=== PATIENT | male | born 1965 | race Caucasian/White ===

== ENCOUNTER 2021-09-25 11:48 | Day surgery (SDC) | payer MEDICARE ==
[2021-09-25] MEDS ORDERED: DIPRIVAN 200 MG/20 ML IV ONE (15:27)
[2021-09-25] MEDS ORDERED: Lactated Ringers 1,000 ML IV ONE (16:23)
--- NOTE | 2021-09-25 16:45 | XRAY ---
Indication: Right C3-C5 MBB. Intraoperative fluoroscopy provided for 21 seconds. 2 digital spot images submitted for interpretation demonstrates posterior needle tips projecting over the expected right C3-C5 nerve roots. Correlate with intraoperative findings/report.
--- NOTE | 2021-09-25 16:47 | XRAY ---
22 seconds fluoroscopy time in surgery for right C3-C5 MBB.
== END 2021-09-25 15:55 | disposition home or self-care (01) ==
LOC: SDC-PAIN 11:48
PROVIDERS: ATTEND Psychiatry & Neurology Pain Medicine
DX: M47.812 Spondylosis without myelopathy or radiculopathy, cervical region (principal); Z79.899 Other long term (current) drug therapy
CPT/HCPCS: 72040; 77002; J2704

== ENCOUNTER 2021-10-01 16:54 | Emergency (ER) | payer MEDICARE ==
[2021-10-01] MEDS ORDERED: BABY ASPIRIN 81 MG CHEW PO ONE (17:19)
[2021-10-01 17:48] LABS: Absolute Neutrophil Ct (ANC) 5.47 (1.4-6.9); Basophil (Absolute #) 0.02 (0-0.4); Eosinophil % 1.9 % (0.00-5.0); Eosinophil (Absolute #) 0.17 (0-0.5); Hematocrit 45.6 % (42-50); Hemoglobin 15.6 gm/dl (12.5-18.0); Lymphocyte (Absolute #) 2.29 (1.0-4.6); Lymphocytes % 25.9 % (24.0-44.0); Mean Cell Volume 100.4 fl (78-100); Mean Corpuscular Hemoglobin 34.4 pg (26-32); Mean Corpuscular Hgb Concent. 34.2 g/dl (32-36); Mean Platelet Volume 10.3 fl (7.5-11.0); Monocyte (Absolute #) 0.89 (0.0-1.3); Monocytes % 10.1 % (0.0-12.0); Neutrophil % 61.9 % (36.0-66.0); Platelet Count 255 K/mm3 (150-450); Red Blood Count 4.54 M/mm3 (4.1-5.6); Red Cell Distribution Width 12.8 % (11.5-14.0); White Blood Count 8.8 K/mm3 (4.0-10.5)
[2021-10-01] MEDS ORDERED: BABY ASPIRIN 81 MG CHEW ONE (17:52)
[2021-10-01 17:58] LABS: ALBUMIN 4.5 g/dL (3.5-5.0); ALKALINE PHOSPHATASE 67 U/L (38-126); ANION GAP 14.2 MEQ/L (5-15); BLOOD UREA NITROGEN 13 mg/dL (9-20); CHLORIDE 105 mmol/L (98-107); CK-Creatinine Phosphokinase 131 U/L (55-170); Calcium 9.2 mg/dL (8.4-10.2); Carbon Dioxide 21 mmol/L (22-30); Creatinine 1 0.75 mg/dL (0.66-1.25); EST GLOMERULAR FILTRATION RATE > 60.0 ML/MIN; Glucose 87 mg/dL (74-106); Potassium 4.3 mmol/L (3.5-5.1); SGOT/AST 39 U/L (17-59); SGPT/ALT 42 U/L (0-50); SODIUM 136 mmol/L (137-145); Total Protein 7.4 g/dL (6.3-8.2)
--- NOTE | 2021-10-01 18:37 | ERPHSYRPT ---
- History of Present Illness Time Seen by Provider: 10/01/21 16:58 Historian: patient Exam Limitations: no limitations Patient Subjective Stated Complaint: Pt c/o of daron chest pain with right shoulder pain that he states happened after an injection of Lidocaine from Dr. Liz in his right side of cervical neck, pt states that he gets very anxious and then his chest hurts and he also has a hx of having the same issues with lidocaine in the past Triage Nursing Assessment: Pt brought to the ER by his , hypertensive, rates pain as 6/10, admits that he is very is anxious and then his daron chest began hurting and right shoulder, no edema, pulses normal, pt laughing and talking, doesn't appear to be in any distress Physician History: 56 years old male with history of chronic shoulder pain, hypertension, hyperlipi demia presented to the ER with chief dull aching chest pain off and on for the last 4 days after he received right shoulder/neck injection from pain management. Patient reports dull aching pain more on the left with radiation to the right and having similar pains in the past after receiving pain medication shot. Pain got better with receiving Ativan. Denies any difficulty breathing or palpitations. No fever or chills reported. Timing/Duration: day(s) (4), intermittent, gradual onset, improved Activities at Onset: rest Quality: aching, dullness Chest Pain Radiation: no radiation Severity of Pain-Max: moderate Severity of Pain-Current: moderate Modifying Factors: Worsens With: exertion Associated Symptoms: denies symptoms Prior Chest Pain/Cardiac Workup: no prior cardiac workup Nitro Today/Relief: no nitro taken today Aspirin Treatment Today: no aspirin today Allergies/Adverse Reactions: paroxetine [From Paxil] Allergy (Verified 10/01/21 17:16) doxycycline Adverse Reaction (Verified 10/01/21 17:16) gabapentin Adverse Reaction (Verified 10/01/21 17:16) prednisone Adverse Reaction (Verified 10/01/21 17:16) Home Medications: ALPRAZolam [Alprazolam] 0.5 mg PO BID 10/01/21 [History] Famotidine 20 mg [Pepcid 20 MG] 20 mg PO DAILY 10/01/21 [History] Lovastatin 40 mg PO DAILY 10/01/21 [History] atenoloL [Atenolol] 25 mg PO DAILY 10/01/21 [History] Travel Risk - International Travel Have you traveled outside of the country in past 3 weeks: No - Coronavirus Screening Are you exhibiting any of the following symptoms?: No Close contact with a COVID-19 positive Pt in past 14-21 Days: No - Vaccine Status Have you recieved a Covid-19 vaccination: Yes San[employer]: Moderna - Vaccination Dates Date of 2cond Vaccination (if applicable): 10/2020 - Review of Systems Constitutional: No Symptoms Eyes: No Symptoms Ears, Nose, & Throat: No Symptoms Respiratory: No Symptoms Cardiac: Chest Pain Abdominal/Gastrointestinal: No Symptoms Genitourinary Symptoms: No Symptoms Musculoskeletal: Arthralgias Neurological: Irritability Psychological: Anxiety Endocrine: No Symptoms Hematologic/Lymphatic: No Symptoms Immunological/Allergic: No Symptoms - Past Medical History Pertinent Past Medical History: Yes Cardiac History: Hypertension Psycho-Social History: Anxiety Other Medical History: generalized pain - Past Surgical History Past Surgical History: Yes Genitourinary: Other Musculoskeletal: Orthopedic Surgery Other Surgical History: uretheral dilation. teeth carotid artery. lamonectomy. shoulder - Social History Smoking Status: Current some day smoker Exposure to second hand smoke: Yes Drug Use: none Patient Lives Alone: No - Nursing Vital Signs Nursing Vital Signs: Initial Vital Signs Temperature 97.6 F 10/01/21 16:59 Pulse Rate 78 10/01/21 16:59 Blood Pressure 161/90 10/01/21 16:59 O2 Sat by Pulse Oximetry 98 10/01/21 16:59 Pain Scale Pain Intensity 5 - Physical Exam General Appearance: no apparent distress, alert, anxiety Eye Exam: PERRL/EOMI, eyes nml inspection Ears, Nose, Throat Exam: normal ENT inspection, TMs normal, pharynx normal, moist mucous membranes Neck Exam: normal inspection, non-tender, supple, full range of motion Respiratory Exam: normal breath sounds, lungs clear Cardiovascular Exam: regular rate/rhythm, normal heart sounds Gastrointestinal/Abdomen Exam: soft, normal bowel sounds, No tenderness Back Exam: normal inspection Extremity Exam: normal inspection, normal range of motion Neurologic Exam: alert, oriented x 3, cooperative Skin Exam: normal color SpO2 Interpretation: normal SpO2: 98 O2 Delivery: Room Air Ordered Tests: Active Orders 24 hr Category Date Time Status [employer] H[employer] Developer STAT Care 10/01/21 17:19 Completed EKG-ER Only STAT Care 10/01/21 17:19 Completed IV Insertion STAT Care 10/01/21 17:19 Completed CHEST 1 VIEW (PORTABLE) Stat Exams 10/01/21 17:19 Taken CBC W DIFF Stat Lab 10/01/21 17:15 Completed CK-Creatinine Phosphokinase Stat Lab 10/01/21 17:15 Completed CMP Stat Lab 10/01/21 17:15 Completed D-DIMER QUANTITATIVE Stat Lab 10/01/21 18:57 Completed MAG [MAGNESIUM] Stat Lab 10/01/21 17:51 Completed NT PRO BNP Stat Lab 10/01/21 17:15 Completed TROPONIN Q3H Lab 10/01/21 17:15 Completed TROPONIN Q3H Lab 10/01/21 19:11 Completed Medication Summary Discontinued Medications Generic Name Dose Route Start Last Admin Trade Name Freq PRN Reason Stop Dose Admin Aspirin 324 mg 10/01/21 17:19 10/01/21 17:53 Aspirin 81 Mg Tab.Chew PO 10/01/21 17:20 324 mg STAT ONE Administration Aspirin Confirm 10/01/21 17:52 Aspirin 81 Mg Tab.Chew Administered 10/01/21 17:53 Dose 324 mg .ROUTE .[employer]-MED ONE Lab/Rad Data: Laboratory Result Diagrams 10/01/21 17:15 10/01/21 17:15 Laboratory Results 10/01/21 10/01/21 10/01/21 Range/Units 19:11 18:57 17:51 WBC (4.0-10.5) K/mm3 RBC (4.1-5.6) M/mm3 Hgb (12.5-18.0) gm/dl Hct (42-50) % MCV (78-100) fl MCH (26-32) pg MCHC (32-36) g/dl RDW (11.5-14.0) % Plt Count (150-450) K/mm3 MPV (7.5-11.0) fl Gran % (36.0-66.0) % Eos # (Auto) (0-0.5) Absolute Lymphs (auto) (1.0-4.6) Absolute Monos (auto) (0.0-1.3) Lymphocytes % (24.0-44.0) % Monocytes % (0.0-12.0) % Eosinophils % (0.00-5.0) % Basophils % (0.0-0.4) % Absolute Granulocytes (1.4-6.9) Basophils # (0-0.4) D-Dimer 252 (215-500) ng/mL Sodium (137-145) mmol/L Potassium (3.5-5.1) mmol/L Chloride (98-107) mmol/L Carbon Dioxide (22-30) mmol/L Anion Gap (5-15) MEQ/L BUN (9-20) mg/dL Creatinine (0.66-1.25) mg/dL Estimated GFR ML/MIN Glucose (74-106) mg/dL Calcium (8.4-10.2) mg/dL Magnesium 2.0 (1.6-2.3) mg/dL Total Bilirubin (0.2-1.3) mg/dL AST (17-59) U/L ALT (0-50) U/L Alkaline Phosphatase (38-126) U/L Creatine Kinase (55-170) U/L Troponin I 0.019 (0.000-0.034) ng/mL NT-Pro-B Natriuret Pep (0-900) pg/mL Serum Total Protein (6.3-8.2) g/dL Albumin (3.5-5.0) g/dL 10/01/21 10/01/21 10/01/21 Range/Units 17:15 17:15 17:15 WBC 8.8 (4.0-10.5) K/mm3 RBC 4.54 (4.1-5.6) M/mm3 Hgb 15.6 (12.5-18.0) gm/dl Hct 45.6 (42-50) % MCV 100.4 H (78-100) fl MCH 34.4 H (26-32) pg MCHC 34.2 (32-36) g/dl RDW 12.8 (11.5-14.0) % Plt Count 255 (150-450) K/mm3 MPV 10.3 (7.5-11.0) fl Gran % 61.9 (36.0-66.0) % Eos # (Auto) 0.17 (0-0.5) Absolute Lymphs (auto) 2.29 (1.0-4.6) Absolute Monos (auto) 0.89 (0.0-1.3) Lymphocytes % 25.9 (24.0-44.0) % Monocytes % 10.1 (0.0-12.0) % Eosinophils % 1.9 (0.00-5.0) % Basophils % 0.2 (0.0-0.4) % Absolute Granulocytes 5.47 (1.4-6.9) Basophils # 0.02 (0-0.4) D-Dimer (215-500) ng/mL Sodium 136 L (137-145) mmol/L Potassium 4.3 (3.5-5.1) mmol/L Chloride 105 (98-107) mmol/L Carbon Dioxide 21 L (22-30) mmol/L Anion Gap 14.2 (5-15) MEQ/L BUN 13 (9-20) mg/dL Creatinine 0.75 (0.66-1.25) mg/dL Estimated GFR > 60.0 ML/MIN Glucose 87 (74-106) mg/dL Calcium 9.2 (8.4-10.2) mg/dL Magnesium (1.6-2.3) mg/dL Total Bilirubin 0.60 (0.2-1.3) mg/dL AST 39 (17-59) U/L ALT 42 (0-50) U/L Alkaline Phosphatase 67 (38-126) U/L Creatine Kinase 131 (55-170) U/L Troponin I 0.015 (0.000-0.034) ng/mL NT-Pro-B Natriuret Pep 65.0 (0-900) pg/mL Serum Total Protein 7.4 (6.3-8.2) g/dL Albumin 4.5 (3.5-5.0) g/dL - Progress Progress: improved Air Movement: good Progress Note: 10/01/21 20:04 56 years old is evaluated for chest pain after receiving injection from pain management. Patient is given aspirin, on reevaluation feeling better and is chest pain-free. Has some element of anxiety to. Patient had similar chest pains in the past and get better with Ativan. Negative troponins x2, negative D-dimers. Chest x-ray no acute findings reviewed by me, official report is pending. I have offered him observation admission but patient wants to go home and would follow-up outpatient with cardiology. Patient does report that he headache nuclear stress test done few months ago and was -2 and has similar chest pain multiple times in the past. Discussed with patient both signs symptoms of worsening needing return to ER which he seems understanding. Stable for discharge. Blood Culture(s) Obtained: No Antibiotics given: No Counseled pt/family regarding: lab results, diagnosis, need for follow-up, rad results - Departure Departure Disposition: Home Clinical Impression: Atypical chest pain, Anxiety Condition: Stable Critical Care Time: No Referrals: LEONARDA CONTRERAS PA [Primary Care Provider] - Follow up/PCP as directed (1-2 days for reevaluation) NATALIA ANGELES [CONSULTING PHYSICIAN] - Follow up/PCP as directed (Call tomorrow for appointment for reevaluation.) Instructions: Angina (DC) Additional Instructions: Follow-up with primary care and cardiology for reevaluation. Return to ER for worsening chest pain or if having palpitations/shortness of breath etc.
[2021-10-01 20:05] VITALS: BP 129/78; PULSE 68
[2021-10-01 20:09] VITALS: O2SAT 98
--- NOTE | 2021-10-02 08:41 | XRAY ---
Indication: Chest pain. Comparison: None Portable apical lordotic chest demonstrates minimal left base fibrosis/scarring. Remaining heart and lungs normal. Bony thorax intact with previous right shoulder surgery.
== END 2021-10-01 20:26 | disposition home or self-care (01) ==
LOC: ED 16:54
DX: R07.89 Other chest pain (principal); F41.9 Anxiety disorder, unspecified; I10 Essential (primary) hypertension; E78.5 Hyperlipidemia, unspecified; Z72.0 Tobacco use; Z79.899 Other long term (current) drug therapy
CPT/HCPCS: 36000; 36415; 71045; 80053; 82550; 83735; 83880; 84484; 85025; 85379; 93005; 93041; 99284; A9270-GY

== ENCOUNTER 2022-11-11 15:00 | Emergency (ER) | payer MEDICARE ==
[2022-11-11] MEDS ORDERED: BABY ASPIRIN 81 MG CHEW PO ONE (15:20)
--- NOTE | 2022-11-11 15:20 | ERPHSYRPT ---
- History of Present Illness Time Seen by Provider: 11/11/22 15:15 Historian: patient Exam Limitations: no limitations Patient Subjective Stated Complaint: C/O chest pain that started approx 30 minutes prior to arrival while driving from [place] to [place] for a bello rcut. Triage Nursing Assessment: Patient ambulated back to ER. He is alert and oriented; anxious. No SOB. Skin tone normal. No edema. No cough. [place] WNL. Physician History: This is a 57-year-old white male patient who has known peripheral vascular d isease and had a right carotid endarterectomy in the past who relatively recently was seen at an outside emergent department and diagnosed with clinical TIA. Per his report there was no evidence of an acute stroke. Approxi-2 years ago patient underwent a cardiac stress test and it was negative per patient report. Patient currently sees Dr. Pinto a nail artist who follows his blood pressure. He has had nail artist in the past who he was sent to because of the issue with his carotid artery disease and high blood pressure. He has not been diagnosed with coronary artery disease in the past. He is never had a echocardiogram of the heart or cardiac catheterization. However, he does state that he was told once by his doctor that he had angina. Patient does have significant anxiety as well. Patient is on metoprolol, atorvastatin, and alprazolam. Today, prior to arrival, he was on his way from his home to the [facility] to get a haircut. He began having substernal, central, nonradiating chest pressure and he became concerned so he diverted to our emergency department. He has no shortness of breath. Patient has been on Plavix as well. However, the family states that he will be changing to Brilinta. Timing/Duration: today Activities at Onset: none Quality: pressure Location: substernal, central Chest Pain Radiation: no radiation Severity of Pain-Max: mild Severity of Pain-Current: none Prior Chest Pain/Cardiac Workup: stress test (3 years ago and per his report it was negative) Nitro Today/Relief: no nitro taken today Aspirin Treatment Today: no aspirin today Allergies/Adverse Reactions: dexamethasone Allergy (Verified 11/11/22 15:01) paroxetine [From Paxil] Allergy (Verified 11/11/22 15:01) gabapentin Adverse Reaction (Verified 11/11/22 15:01) prednisone Adverse Reaction (Verified 11/11/22 15:01) Home Medications: ALPRAZolam [Alprazolam] 0.5 mg PO BID 10/01/21 [History] Famotidine 20 mg [Pepcid 20 MG] 20 mg PO DAILY 10/01/21 [History] Lovastatin 40 mg PO DAILY 10/01/21 [History] atenoloL [Atenolol] 25 mg PO DAILY 10/01/21 [History] Hx Tetanus, Diphtheria Vaccination/Date Given: Yes Hx Influenza Vaccination/Date Given: Yes Hx Pneumococcal Vaccination/Date Given: Yes Immunizations Up to Date: Yes Travel Risk - International Travel Have you traveled outside of the country in past 3 weeks: No - Coronavirus Screening Are you exhibiting any of the following symptoms?: No Close contact with a COVID-19 positive Pt in past 14-21 Days: No - Vaccine Status Have you recieved a Covid-19 vaccination: Yes 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[employer] - Vaccination Dates Date of 2cond Vaccination (if applicable): 10/2020 - Review of Systems Constitutional: No Symptoms Eyes: No Symptoms Ears, Nose, & Throat: No Symptoms, Throat Swelling Cardiac: Chest Pain Abdominal/Gastrointestinal: No Symptoms Genitourinary Symptoms: No Symptoms Musculoskeletal: No Symptoms Skin: No Symptoms Neurological: No Symptoms Psychological: No Symptoms Endocrine: No Symptoms Hematologic/Lymphatic: No Symptoms Immunological/Allergic: No Symptoms All Other Systems: Reviewed and Negative - Past Medical History Pertinent Past Medical History: Yes Neurological History: TIA Cardiac History: Hypertension Psycho-Social History: Anxiety Other Medical History: generalized pain, carotid blockage - Past Surgical History Past Surgical History: Yes Cardiac: No Pertinent History Gastrointestinal: No Pertinent History Genitourinary: Other Musculoskeletal: Orthopedic Surgery Other Surgical History: uretheral dilation, right carotid artery in 2019, lamonectomy, shoulder - Social History Smoking Status: Current some day smoker How long have you smoked: 45 YEARS Exposure to second hand smoke: Yes Drug Use: none Patient Lives Alone: No - Nursing Vital Signs Nursing Vital Signs: Initial Vital Signs Temperature 97.9 F 11/11/22 15:02 Pulse Rate 81 11/11/22 15:02 Respiratory Rate 24 11/11/22 15:02 Blood Pressure 140/78 11/11/22 15:02 O2 Sat by Pulse Oximetry 98 11/11/22 15:02 Pain Scale Pain Intensity 4 - Physical Exam General Appearance: no apparent distress, alert Eye Exam: PERRL/EOMI, eyes nml inspection Ears, Nose, Throat Exam: normal ENT inspection, moist mucous membranes Neck Exam: normal inspection, non-tender, supple, full range of motion Respiratory Exam: normal breath sounds, chest tenderness, lungs clear, airway intact, No respiratory distress Cardiovascular Exam: regular rate/rhythm, normal heart sounds, normal peripheral pulses Gastrointestinal/Abdomen Exam: soft, normal bowel sounds, No tenderness Rectal Exam: not done Back Exam: normal inspection, normal range of motion, No CVA tenderness Extremity Exam: normal inspection, normal range of motion, pelvis stable Neurologic Exam: alert, oriented x 3, cooperative, cigarette inspector II-XII nml as tested, normal mood/affect, nml cerebellar function, nml station & gait, sensation nml Skin Exam: normal color, warm, dry Lymphatic Exam: No adenopathy SpO2 Interpretation: normal SpO2: 98 O2 Delivery: Room Air - Course Nursing assessment & vital signs reviewed: Yes EKG Interpreted by Me: RATE (61), Sinus Rhythm, NORMAL AXIS, NORMAL INTERVALS, NORMAL QRS, NORMAL ST-T, Other (No acute ischemia on today's twelve-lead EKG.) Ordered Tests: Active Orders 24 hr Category Date Time Status EKG-ER Only STAT Care 11/11/22 15:20 Active IV Insertion STAT Care 11/11/22 15:20 Active Pulse Oximetry (ED) STAT Care 11/11/22 15:20 Active CHEST 1 VIEW (PORTABLE) Stat Exams 11/11/22 15:20 Completed CBC W DIFF Stat Lab 11/11/22 15:25 Completed CMP Stat Lab 11/11/22 15:25 Completed D-DIMER QUANTITATIVE Stat Lab 11/11/22 15:25 Completed NT PRO BNPII Stat Lab 11/11/22 15:25 Completed TROPONIN Q4H Lab 11/11/22 15:25 Completed TROPONIN Q4H Lab 11/11/22 18:45 Completed TROPONIN Q4H Lab 11/11/22 23:30 Ordered Medication Summary Discontinued Medications Generic Name Dose Route Start Last Admin Trade Name Freq PRN Reason Stop Dose Admin Aspirin 324 mg 11/11/22 15:20 11/11/22 15:25 Aspirin 81 Mg Tab.Chew PO 11/11/22 15:21 324 mg STAT ONE Administration Aspirin Confirm 11/11/22 15:28 Aspirin 81 Mg Tab.Chew Administered 11/11/22 15:29 Dose 324 mg .ROUTE .STK-MED ONE Lab/Rad Data: Laboratory Result Diagrams 11/11/22 15:25 11/11/22 15:25 Laboratory Results 11/11/22 11/11/22 11/11/22 Range/Units 18:45 15:25 15:25 WBC (4.0-10.5) x10^3/uL RBC (4.1-5.6) x10^6/uL Hgb (12.5-18.0) g/dL Hct (42-50) % MCV (78-100) fL MCH (26-32) pg MCHC (32-36) g/dL RDW (11.5-14.0) % Plt Count (150-450) x10^3/uL MPV (7.5-11.0) fL Gran % (36.0-66.0) % Immature Gran % (Auto) (0.00-0.4) % Nucleat RBC Rel Count (0.00-0.1) % Eos # (Auto) (0-0.5) x10^3/uL Immature Gran # (Auto) (0.00-0.03) x10^3u/L Absolute Lymphs (auto) (1.0-4.6) x10^3/uL Absolute Monos (auto) (0.0-1.3) x10^3/uL Absolute Nucleated RBC (0.00-0.01) x10^3u/L Lymphocytes % (24.0-44.0) % Monocytes % (0.0-12.0) % Eosinophils % (0.00-5.0) % Basophils % (0.0-0.4) % Absolute Granulocytes (1.4-6.9) x10^3/uL Basophils # (0-0.4) x10^3/uL D-Dimer < 0.19 (0.0-0.50) mg/L Sodium (137-145) mmol/L Potassium (3.5-5.1) mmol/L Chloride (98-107) mmol/L Carbon Dioxide (22-30) mmol/L Anion Gap (5-15) MEQ/L BUN (9-20) mg/dL Creatinine (0.66-1.25) mg/dL Estimated GFR ML/MIN Glucose (74-106) mg/dL Calcium (8.4-10.2) mg/dL Total Bilirubin (0.2-1.3) mg/dL AST (17-59) U/L ALT (0-50) U/L Alkaline Phosphatase (38-126) U/L Troponin I 0.014 0.013 (0.000-0.034) ng/mL NT-Pro-B Natriuret Pep (<300) pg/mL Serum Total Protein (6.3-8.2) g/dL Albumin (3.5-5.0) g/dL 11/11/22 11/11/22 Range/Units 15:25 15:25 WBC 5.4 (4.0-10.5) x10^3/uL RBC 4.24 (4.1-5.6) x10^6/uL Hgb 14.3 (12.5-18.0) g/dL Hct 42.4 (42-50) % MCV 100.0 (78-100) fL MCH 33.7 H (26-32) pg MCHC 33.7 (32-36) g/dL RDW 12.5 (11.5-14.0) % Plt Count 209 (150-450) x10^3/uL MPV 10.6 (7.5-11.0) fL Gran % 53.5 (36.0-66.0) % Immature Gran % (Auto) 0.2 (0.00-0.4) % Nucleat RBC Rel Count 0.0 (0.00-0.1) % Eos # (Auto) 0.17 (0-0.5) x10^3/uL Immature Gran # (Auto) 0.01 (0.00-0.03) x10^3u/L Absolute Lymphs (auto) 1.83 (1.0-4.6) x10^3/uL Absolute Monos (auto) 0.48 (0.0-1.3) x10^3/uL Absolute Nucleated RBC 0.00 (0.00-0.01) x10^3u/L Lymphocytes % 34.0 (24.0-44.0) % Monocytes % 8.9 (0.0-12.0) % Eosinophils % 3.2 (0.00-5.0) % Basophils % 0.2 (0.0-0.4) % Absolute Granulocytes 2.89 (1.4-6.9) x10^3/uL Basophils # 0.01 (0-0.4) x10^3/uL D-Dimer (0.0-0.50) mg/L Sodium 137 (137-145) mmol/L Potassium 4.1 (3.5-5.1) mmol/L Chloride 103 (98-107) mmol/L Carbon Dioxide 24 (22-30) mmol/L Anion Gap 14.1 (5-15) MEQ/L BUN 9 (9-20) mg/dL Creatinine 0.86 (0.66-1.25) mg/dL Estimated GFR > 60.0 ML/MIN Glucose 100 (74-106) mg/dL Calcium 9.0 (8.4-10.2) mg/dL Total Bilirubin 0.50 (0.2-1.3) mg/dL AST 36 (17-59) U/L ALT 38 (0-50) U/L Alkaline Phosphatase 58 (38-126) U/L Troponin I (0.000-0.034) ng/mL NT-Pro-B Natriuret Pep 127 (<300) pg/mL Serum Total Protein 7.4 (6.3-8.2) g/dL Albumin 4.3 (3.5-5.0) g/dL - Progress Progress: improved, re-examined, unchanged Air Movement: good Progress Note: 11/11/22 16:40 This patient's chest x-ray was interpreted by the radiologist and reviewed by me. The patient has no acute cardiopulmonary process. This patient's medical issue is 1 of moderate complexity. The level of complexity and the work-up performed is based on the review of the patient's past medical history, review of the patient's medication list, review of the patient's drug allergy list, history of present illness and findings on physical examination. The work-up in this patient includes a chest x-ray, twelve-lead EKG, CMP, CBC, D-dimer, and troponin. I reviewed the results of the studies. There is no evidence of any acute, emergent medical issue. We will keep the patient here and repeat a twelve-lead EKG in 3 hours from the last twelve-lead EKG as well as a 3-hour troponin level. If these are normal patient will be discharged to home. He was instructed to contact his nail artist which he did and he has an appointment to see his nail artist on 11/12/2022 which is tomorrow. He is to continue his medication as prescribed. 11/11/22 19:13 Patient's 3-hour troponin is approximately the same as the previous 1 the value went from 0.013-0.014. Both of these are well within the normal range. The repeat, 3-hour twelve-lead EKG does show a sinus bradycardia with a heart rate of 47 compared to his previous twelve-lead EKG of heart rate of 61. Patient did just take his oral metoprolol here in the hospital. Patient was told to hold his blood pressure medication tomorrow morning before he sees his nail artist. He currently states his chest pain is gone. Blood Culture(s) Obtained: No Antibiotics given: No Counseled pt/family regarding: lab results, diagnosis, need for follow-up, rad results Medical Desision Making - Independent Historian Additional History obtained from: Spouse - Diagnostic Testing Radiological Interpretation: Reviewed by me, Teleradiologist Report - Risk of complications Low Risk: Low risk of morbidity from additional dx testing or treatment - Departure Departure Disposition: Home Clinical Impression: Chest pain Condition: Stable Critical Care Time: No Referrals: LEONARDA CONTRERAS PA [Primary Care Provider] - Follow up/PCP as directed Additional Instructions: Take your medications as prescribed. Follow-up with your nail artist tomorrow at your scheduled appointment time. Return to the emergency department if symptoms recur.
[2022-11-11] MEDS ORDERED: BABY ASPIRIN 81 MG CHEW ONE (15:28)
[2022-11-11 15:47] LABS: Absolute Neutrophil Ct (ANC) 2.89 x10^3/uL (1.4-6.9); BASOPHIL % 0.2 % (0.0-0.4); Basophil (Absolute #) 0.01 x10^3/uL (0-0.4); Eosinophil % 3.2 % (0.00-5.0); Eosinophil (Absolute #) 0.17 x10^3/uL (0-0.5); Hematocrit 42.4 % (42-50); Hemoglobin 14.3 g/dL (12.5-18.0); IMMATURE GRAN # 0.01 x10^3u/L (0.00-0.03); IMMATURE GRAN % 0.2 % (0.00-0.4); Lymphocyte (Absolute #) 1.83 x10^3/uL (1.0-4.6); Mean Corpuscular Hemoglobin 33.7 pg (26-32); Mean Corpuscular Hgb Concent. 33.7 g/dL (32-36); Mean Platelet Volume 10.6 fL (7.5-11.0); Monocyte (Absolute #) 0.48 x10^3/uL (0.0-1.3); Monocytes % 8.9 % (0.0-12.0); Neutrophil % 53.5 % (36.0-66.0); Platelet Count 209 x10^3/uL (150-450); Red Blood Count 4.24 x10^6/uL (4.1-5.6); Red Cell Distribution Width 12.5 % (11.5-14.0); White Blood Count 5.4 x10^3/uL (4.0-10.5)
--- NOTE | 2022-11-11 15:57 | XRAY ---
Indication: Chest pain. Comparison: October 01, 2021 Portable apical lordotic chest remains hyperinflated and clear. Heart not enlarged. Bony thorax intact. No new/acute findings.
[2022-11-11 15:59] LABS: ALBUMIN 4.3 g/dL (3.5-5.0); ALKALINE PHOSPHATASE 58 U/L (38-126); ANION GAP 14.1 MEQ/L (5-15); BLOOD UREA NITROGEN 9 mg/dL (9-20); CHLORIDE 103 mmol/L (98-107); Carbon Dioxide 24 mmol/L (22-30); Creatinine 1 0.86 mg/dL (0.66-1.25); EST GLOMERULAR FILTRATION RATE > 60.0 ML/MIN; Glucose 100 mg/dL (74-106); NT PRO BNPII 127 pg/mL (<300); Potassium 4.1 mmol/L (3.5-5.1); SGOT/AST 36 U/L (17-59); SGPT/ALT 38 U/L (0-50); SODIUM 137 mmol/L (137-145); Total Protein 7.4 g/dL (6.3-8.2)
[2022-11-11 19:17] VITALS: O2SAT 98
[2022-11-11 19:26] VITALS: BP 129/73; PULSE 58
== END 2022-11-11 19:35 | disposition home or self-care (01) ==
LOC: ED 15:00
DX: R07.9 Chest pain, unspecified (principal); I10 Essential (primary) hypertension; Z79.02 Long term (current) use of antithrombotics/antiplatelets; Z79.899 Other long term (current) drug therapy; Z72.0 Tobacco use
CPT/HCPCS: 36000; 36415; 71045; 80053; 83880; 84484; 85025; 85379; 93005; 94760; 99284; A9270-GY

== ENCOUNTER 2023-02-25 16:26 | Emergency (ER) | payer MEDICARE ==
--- NOTE | 2023-02-25 16:32 | ERPHSYRPT ---
- History of Present Illness Time Seen by Provider: 02/25/23 16:32 Source: patient, family Exam Limitations: no limitations Physician History: This is a 58-year-old white male who arrives to the emergency department after having a full work-up at [facility] emergency department earlier today. Patient has a history of hyperlipidemia, COPD, hypertension, GERD, depression, bipolar disorder, back pain, dizziness, chest pain, anxiety and TIAs. He was having complaints of left flank pain and left scrotal/testicular pain. I reviewed the records from the work-up that was done today on 02/25/2023. The patient was discharged from the emergency department and instructed to warehouse order picker Cipro antibiotic. They did not warehouse order picker this medication. He was having a lot of left flank and left scrotal pain so they came here instead. Patient has [place] at home. He states he cannot take NSAIDs because he is allergic to NSAIDs. An ultrasound of the testicle and scrotum was performed. There is evidence of left epididymitis. A urinalysis was performed which showed urinary tract infection with hematuria present. A CAT scan of the abdomen pelvis without contrast shows no acute intra-abdominal or intrapelvic findings. Patient did have leukocytosis. After reviewing the records from the outside facility, I discussed the results with the patient and his spouse. I do not feel the patient requires additional testing. We we will provide him with intramuscular Rocephin 1 g, 500 mg oral Levaquin, intramuscular injection of Dilaudid and Zofran 4 mg ODT. They agree with this plan. Timing/Duration: today Activites at Onset: none Quality: aching Onset Location: left flank, scrotal (Left) Severity of Pain-Max: moderate Severity of Pain-Current: moderate Modifying Factors: Improves With: nothing Associated Symptoms: fever Sexual intercourse history: non-contributory Allergies/Adverse Reactions: dexamethasone Allergy (Verified 11/11/22 15:01) paroxetine [From Paxil] Allergy (Verified 11/11/22 15:01) doxycycline Adverse Reaction (Verified 02/25/23 16:38) gabapentin Adverse Reaction (Verified 11/11/22 15:01) prednisone Adverse Reaction (Verified 11/11/22 15:01) Home Medications: ALPRAZolam [Alprazolam] 0.5 mg PO BID 10/01/21 [History] Famotidine 20 mg [Pepcid 20 MG] 20 mg PO DAILY 10/01/21 [History] Lovastatin 40 mg PO DAILY 10/01/21 [History] atenoloL [Atenolol] 25 mg PO DAILY 10/01/21 [History] Ciprofloxacin HCl 500 mg PO BID 02/25/23 [History] Hx Tetanus, Diphtheria Vaccination/Date Given: Yes Hx Influenza Vaccination/Date Given: Yes Hx Pneumococcal Vaccination/Date Given: Yes Travel Risk - International Travel Have you traveled outside of the country in past 3 weeks: No - Coronavirus Screening Are you exhibiting any of the following symptoms?: No Close contact with a COVID-19 positive Pt in past 14-21 Days: No - Vaccine Status Have you recieved a Covid-19 vaccination: Yes Supervisory Aide: Moderna - Vaccination Dates Date of 2cond Vaccination (if applicable): 10/2020 - Past Medical History Pertinent Past Medical History: Yes Neurological History: TIA Cardiac History: Hypertension Psycho-Social History: Anxiety Other Medical History: generalized pain, carotid blockage - Past Surgical History Past Surgical History: Yes Cardiac: No Pertinent History Gastrointestinal: No Pertinent History Genitourinary: Other Musculoskeletal: Orthopedic Surgery Other Surgical History: uretheral dilation, right carotid artery in 2019, lamonectomy, shoulder - Social History Smoking Status: Current some day smoker How long have you smoked: 45 YEARS Exposure to second hand smoke: Yes Drug Use: none Patient Lives Alone: No - Review of Systems Constitutional: Fever Eyes: No Symptoms Ears, Nose, & Throat: No Symptoms Respiratory: No Symptoms Cardiac: No Symptoms Abdominal/Gastrointestinal: No Symptoms Genitourinary Symptoms: Flank Pain (Left), Testicle Pain (Left) Musculoskeletal: No Symptoms Skin: No Symptoms Neurological: No Symptoms Psychological: No Symptoms Endocrine: No Symptoms Hematologic/Lymphatic: No Symptoms Immunological/Allergic: No Symptoms All Other Systems: Reviewed and Negative - Nursing Vital Signs Nursing Vital Signs: Initial Vital Signs Temperature 100.1 F 02/25/23 16:42 Pulse Rate 109 H 02/25/23 16:42 Respiratory Rate 16 02/25/23 16:42 Blood Pressure 144/74 02/25/23 16:42 O2 Sat by Pulse Oximetry 96 02/25/23 16:42 Pain Scale Pain Intensity 8 - Physical Exam General Appearance: no apparent distress, alert, anxiety Eye Exam: PERRL/EOMI, eyes nml inspection Ears, Nose, Throat Exam: normal ENT inspection, moist mucous membranes Neck Exam: normal inspection, non-tender, supple, full range of motion Respiratory Exam: normal breath sounds, lungs clear, airway intact, No chest tenderness, No respiratory distress Cardiovascular Exam: tachycardia Gastrointestinal/Abdomen Exam: soft, normal bowel sounds, No tenderness Rectal Exam: not done Male Genital Exam: epididymal tenderness (Left side), scrotum tenderness (L) (Left) Back Exam: normal inspection, normal range of motion, No CVA tenderness, No vertebral tenderness Extremity Exam: normal inspection, normal range of motion, pelvis stable Neurologic Exam: alert, oriented x 3, cooperative, crm developer II-XII nml as tested, normal mood/affect, nml cerebellar function, nml station & gait, sensation nml Skin Exam: normal color, warm, dry Lymphatic Exam: No adenopathy SpO2 Interpretation: normal O2 Delivery: Room Air - Course Nursing assessment & vital signs reviewed: Yes Ordered Tests: Active Orders 24 hr Category Date Time Status CULTURE,URINE Stat Lab 02/25/23 16:41 Received UA W/RFX UR CULTURE Stat Lab 02/25/23 16:41 Completed Lab/Rad Data: Laboratory Results 02/25/23 Range/Units 16:41 Urine Color Yellow (Yellow) Urine Appearance Cloudy A (Clear) Urine pH 5.0 (4.6-8.0) Ur Specific [place] 1.025 (1.005-1.030) Urine Protein Trace A (Negative) Urine Glucose (UA) 100 A (Negative) mg/dL Urine Ketones Trace A (Negative) Urine Blood Small A (Negative) Urine Nitrite Negative (Negative) Urine Bilirubin Negative (Negative) Urine Urobilinogen 0.2 (0.2) mg/dL Ur Leukocyte Esterase Moderate A (Negative) U Hyaline Cast (Auto) NONE SEEN (0-2) /LPF Urine Microscopic RBC 0-2 (0-5) /HPF Urine Microscopic WBC 21-50 A (0-5) /HPF Ur Epithelial Cells Few (None Seen) /HPF Urine Bacteria None Seen (None Seen) /HPF Urine Culture Reflexed YES (NO) - Progress Progress: improved, pain not gone completely Progress Note: 02/25/23 17:32 This patient's medical issue is 1 of low complexity. Level complexity in the work-up performed is based on review of the patient's past medical history, review of the outside [facility] emergency department work-up/notes that were performed earlier today, review of the patient's medication list, review the patient's drug allergy list, history of present illness and physical findings on examination. I do not feel it necessary to repeat the complete work-up that was performed at an outside facility earlier today. The patient had not picked up his Cipro antibiotic. He has [place] pain medicine at home and only took Tylenol earlier. I will provide him with Rocephin 1 mg intramuscularly, Dilaudid 1 mg intramuscularly, Zofran 4 mg ODT, and Levaquin 500 mg orally. Patient will be discharged to home with a prescription for Zofran 4 mg ODT to be remotely sent to his pharmacy. He also has to warehouse order picker the Cipro antibiotic and take as prescribed. 02/25/23 17:34 The abdominal and pelvic CT that was performed without contrast shows no acute, emergent, intra-abdominal or intrapelvic findings. The ultrasound shows picture consistent with left epididymitis but no torsion present. Counseled pt/family regarding: lab results, diagnosis, need for follow-up, rad results Medical Desision Making - Independent Historian Additional History obtained from: Spouse - External Record(s) Reviewed Records reviewed as a part of evaluation & management: Urgent Care (I reviewed the emergency room notes and work-up results from [facility] emergency department.) - Diagnostic Testing Diagnostic test were ordered, analyzed, and reviewed by me: Yes Radiological Interpretation: Reviewed by me, Teleradiologist Report - Risk of complications The pt has a mod risk of morbidity or mortality based on: Need for prescription drug management - Departure Departure Disposition: Home Clinical Impression: Left flank pain, Left epididymitis, Urinary tract infection Condition: Stable Critical Care Time: No Referrals: LEONARDA CONTRERAS PA [Primary Care Provider] - Follow up/PCP as directed Additional Instructions: Drink plenty fluids. Take your pain medicine and antibiotics as prescribed. Call your primary care provider tomorrow, 02/26/2023, for further evaluation management. Prescriptions: Ondansetron ODT 4 MG [Zofran Odt 4 mg] 4 mg PO Q6H PRN PRN #10 tablet PRN Reason: Vomiting
[2023-02-25 17:00] VITALS: RESP 16; TEMP 100.1
[2023-02-25 17:11] LABS: Appearance Cloudy (Clear); Bacteria None Seen /HPF (None Seen); Bilirubin Negative (Negative); Blood Small (Negative); Epithelial Cells Few /HPF (None Seen); Glucose, Urine 100 mg/dL (Negative); Hyaline Casts NONE SEEN /LPF (0-2); Ketones Trace (Negative); Leukocyte Esterase Moderate (Negative); Nitrite Negative (Negative); Protein,Urine Dip Trace (Negative); RBC 0-2 /HPF (0-5); Specific Gravity 1.025 (1.005-1.030); Urobilinogen 0.2 mg/dL (0.2); WBC 21-50 /HPF (0-5)
[2023-02-25 17:12] LABS: ADD URINE CULTURE? YES (NO)
[2023-02-25] MEDS ORDERED: Hydromorphone 1 mg/ml Injection IM ONE (17:26)
[2023-02-25] MEDS ORDERED: Rocephin 1000 MG INJ IM ONE (17:26)
[2023-02-25] MEDS ORDERED: Levofloxacin 500 MG Tablet PO ONE (17:26)
[2023-02-25] MEDS ORDERED: ZOFRAN ODT 4 MG PO ONE (17:27)
[2023-02-25] MEDS ORDERED: Rocephin 1000 MG INJ ONE (17:32)
[2023-02-25] MEDS ORDERED: Levofloxacin 500 MG Tablet ONE (17:32)
[2023-02-25] MEDS ORDERED: ZOFRAN ODT 4 MG ONE (17:32)
[2023-02-25] MEDS ORDERED: Hydromorphone 1 mg/ml Injection ONE (17:32)
[2023-02-25 17:55] VITALS: O2SAT 95
[2023-02-25 18:02] VITALS: BP 116/72; PULSE 97
== END 2023-02-25 18:04 | disposition home or self-care (01) ==
LOC: ED 16:26
DX: N39.0 Urinary tract infection, site not specified (principal); R10.9 Unspecified abdominal pain; N45.1 Epididymitis; I10 Essential (primary) hypertension; Z79.899 Other long term (current) drug therapy; Z72.0 Tobacco use
CPT/HCPCS: 81001; 87086; 96372; 99283; J0696; J1170; Q0162; A9270-GY

== ENCOUNTER 2025-01-19 11:41 | Day surgery (SDC) | payer MEDICARE ==
[2025-01-19] MEDS ORDERED: Lactated Ringers 1,000 ML IV ONE (14:33)
== END 2025-01-19 12:30 ==
LOC: SDC-PAIN 11:41
PROVIDERS: ATTEND Psychiatry & Neurology Pain Medicine
DX: Z53.8 Procedure and treatment not carried out for other reasons (principal)